=== PATIENT | male | born 1950 | race Hispanic/Latino ===

== ENCOUNTER 2018-07-17 17:18 | Emergency (ER) | payer MEDICARE, OTHER ==
[2018-07-17] MEDS ORDERED: TETANUS/DIPHTHERIA TOXOID [ADULT] 0.5 ML VIAL IM ONE (17:35)
[2018-07-17] MEDS ORDERED: ACETAMINOPHEN-CODEINE 300/30MG TAB ONE (17:35)
== END 2018-07-17 18:18 | disposition home or self-care (01) ==
LOC: EDH 17:18
DX: S81.812A Laceration without foreign body, left lower leg, initial encounter (principal); I10 Essential (primary) hypertension; E11.9 Type 2 diabetes mellitus without complications; W45.8XXA Other foreign body or object entering through skin, initial encounter; Y93.89 Activity, other specified; Y92.098 Other place in other non-institutional residence as the place of occurrence of the external cause; Y99.8 Other external cause status
CPT/HCPCS: 12031; 73590; 90471; 90714

== ENCOUNTER 2018-07-27 16:02 | Emergency (ER) | payer OTHER | END 2018-07-27 16:17 | disposition home or self-care (01) | LOC: EDH 16:02 | DX: S81.812D Laceration without foreign body, left lower leg, subsequent encounter (principal); I10 Essential (primary) hypertension; E11.9 Type 2 diabetes mellitus without complications; Z87.891 Personal history of nicotine dependence; X58.XXXD Exposure to other specified factors, subsequent encounter | CPT/HCPCS: 99281 ==

== ENCOUNTER 2018-12-01 18:10 | Emergency (ER) | payer OTHER ==
[2018-12-01] MEDS ORDERED: FLUORESCEIN SODIUM 1 STRIP STRIP ONE (18:39)
[2018-12-01] MEDS ORDERED: TETRACAINE HCL 0.5% 4 ML OPHTH SOLN ONE (18:39)
[2018-12-01] MEDS ORDERED: HYDROCODONE/ACETAMINOPHEN 5/325 MG TAB ONE (19:06)
[2018-12-01] MEDS ORDERED: ERYTHROMYCIN BASE 0.5% OPHTH OINT 1 GM TUBE ONE (19:09)
== END 2018-12-01 19:26 | disposition home or self-care (01) ==
LOC: EDH 18:10
DX: S05.01XA Injury of conjunctiva and corneal abrasion without foreign body, right eye, initial encounter (principal); E11.9 Type 2 diabetes mellitus without complications; I10 Essential (primary) hypertension; X58.XXXA Exposure to other specified factors, initial encounter; Y93.89 Activity, other specified; Y92.89 Other specified places as the place of occurrence of the external cause; Y99.8 Other external cause status